=== PATIENT | male | born 1945 | race Caucasian/White ===

== ENCOUNTER 2017-06-23 05:34 | Observation (INO) | payer MEDICARE, OTHER ==
[2017-06-21 16:16] LABS: A/G RATIO 1.2 (0.7-1.9); ALBUMIN 4.2 G/DL (3.5-5.0); BUN (BLOOD UREA NITROGEN) 13 MG/DL (6-23); CALCIUM, SERUM 9.1 MG/DL (8.5-10.4); CHLORIDE, SERUM 96 MMOL/L (96-112); CHOL/HDL RATIO(NOT ORDER) 2.4 (0-5); CHOLESTEROL 173 MG/DL (< 200); CO2 (CARBON DIOXIDE) 27 MMOL/L (24-34); GFR AFRICAN AMERICAN 101 ML/MIN (>=60); GFR NON AFRICAN AMERICAN 87 ML/MIN (>=60); GLOBULIN 3.6 G/DL (2.5-4.1); GLUCOSE, SERUM 115 MG/DL (60-99); HDL CHOLESTEROL 73 MG/DL (> 39); NON-HDL CHOLESTEROL 100 MG/DL (< 160); POTASSIUM, SERUM 4.4 MMOL/L (3.5-5.3); SGOT(AST) 18 U/L (5-40); SGPT(ALT) 22 U/L (5-65); TOTAL BILIRUBIN 0.9 MG/DL (0-1.2); TOTAL PROTEIN 7.8 G/DL (6.0-8.5)
[2017-06-21 16:21] LABS: ALKALINE PHOSPHATASE 79 U/L (45-117); LDL CHOLESTEROL 73 MG/DL (< 130); SODIUM, SERUM 133 MMOL/L (135-148); TRIGLYCERIDE 135 MG/DL (< 150)
[2017-06-21 17:29] LABS: CREATININE (RANDOM URINE) 27.7 MG/DL
[~2017-06-23] VITALS: Ht 177.8 cm; Wt 87.7 kg
--- NOTE | ~2017-06-23 | TEE ---
Transesophageal Echocardiogram [facility] [address] [place]. [address] NAME: JANETTE FUCHS : 49 STATUS : DIS Lina PAT#: [id number] AGE: 71 ADM/REG DATE : 06/23/17 MR#: [id number] REPORT SERV DATE: 06/23/17 DICTATED BY: DANG ZAMAN DATE: 06/23/17 REPORT STATUS : Draft TRANSCRIBED BY: KAELYN DATE: 06/23/17 This is a 71-year-old gentleman of Dr. Ga with a history of coronary artery disease and remote history of CABG and paroxysmal atrial fibrillation. He has been on chronic anticoagulation with Coumadin. The INR was found to be 1.9 earlier this morning and received Lovenox subcutaneously. The dose of the Coumadin has been adjusted. I have been asked to do CHANTAL-guided cardioversion for atrial fibrillation with rapid ventricular response. Risks and benefits of the procedure were explained to the patient. He agreed to proceed. After he was sedated with propofol per Anesthesia, CHANTAL probe was introduced without any difficulties. No complications. FINDINGS: 1. No evidence of left atrial or left atrial appendage thrombus. Normal left atrial appendage outflow velocity around 40 cm/sec. 2. Normal LV size and systolic function, EF of 55%. No regional wall motion abnormalities. 3. Normal RV size and systolic function. 4. Aortic valve is sclerotic, tricuspid opens adequately without significant regurgitation. 5. Mitral opens adequately without significant regurgitation. 6. Tricuspid valve opens adequately. There is a trace tricuspid valve regurgitation. There is grossly normal pulmonic valve. 7. 200 joules of synchronized cardioversion restored normal sinus rhythm. The patient recovered well. CONCLUSION: SUCCESSFUL CHANTAL-GUIDED CARDIOVERSION FROM ATRIAL FIBRILLATION TO NORMAL SINUS RHYTHM. OJL/KAELYN Dang Zaman M.D. / [id number] CC: Kiera Rodriguez, MSN, KILN CHARGER-BC Boogie Kessler M.D.
--- NOTE | ~2017-06-23 | HP ---
History And Physical [facility] [address] [place]. [address] NAME: JANETTE FUCHS : 49 STATUS : ADM Lina PAT#: [id number] AGE: 71 ADM/REG DATE : 06/23/17 MR#: [id number] REPORT SERV DATE: 06/23/17 DICTATED BY: PAULINE FONSECA DATE: 06/23/17 REPORT STATUS : Draft TRANSCRIBED BY: KAELYN DATE: 06/23/17 DATE OF ADMISSION: 06/23/2017 PAPER SLITTER: Edinson Ga M.D. CHIEF COMPLAINT: Palpitations and A-flutter. HISTORY OF PRESENT ILLNESS: This is a pleasant 71-year-old white male with a known history of paroxysmal atrial fibrillation, on Coumadin anticoagulation. He also has a history of hypertension, hyperlipidemia, diabetes mellitus type 2, and coronary artery disease status post remote CABG. He reports that last night at approximately 9 p.m. he noted palpitations and he felt that he was out of rhythm and therefore, he checked his heart rate and it was approximately in the one-teens. He reports he fell asleep and when he awakened this morning, he noted he was still out of rhythm with palpitations and therefore, he decided to present to the emergency department. In the emergency room, this morning they noted that he was in atypical A-flutter with a heart rate in the one-teens. He currently takes carvedilol 6.25 twice a day in addition to Coumadin. He reports he has not missed any of his medications. Note he had no chest pain. He reports that recently his hydrochlorothiazide was increased and that had resolved his edema and that he has been doing quite well. PAST MEDICAL HISTORY: 1. Paroxysmal atrial fibrillation, on . 2. Hypertension. 3. Hyperlipidemia. 4. Coronary artery disease, status post CABG. 5. Diabetes mellitus type 2. 6. Ejection fraction 70% per cath arteriogram on 05/12/2007. Catheterization arteriogram showed a patent HINOJOSA to LAD, patent SVG to PDA, and patent SVG to R1. SOCIAL HISTORY: . Denies tobacco. Drinks approximately two beers or alcoholic drinks several times per week. No illicit drug use. No formal exercise program. FAMILY HISTORY: Noncontributory. ALLERGIES: 1. PENICILLINS, REACTION FACIAL SWELLING. 2. PNEUMOVAX 23, UNKNOWN. 3. HYDRALAZINE, HEART RACES. 4. CLONIDINE, DECREASE HIS BLOOD PRESSURE. MEDICATIONS: Home medications list was reviewed and is as follows: 1. Amlodipine 10 mg p.o. daily. 2. Aspirin 81 mg p.o. daily. 3. Lipitor 40 mg p.o. at bedtime. 4. Benazepril 40 mg p.o. daily. 5. Coreg 6.25 mg p.o. b.i.d. History And Physical [address] [address] NAME: JANETTE FUCHS : 49 STATUS : ADM Lina PAT#: [id number] AGE: 71 ADM/REG DATE : 06/23/17 MR#: [id number] REPORT SERV DATE: 06/23/17 DICTATED BY: PAULINE FONSECA DATE: 06/23/17 REPORT STATUS : Draft TRANSCRIBED BY: KAELYN DATE: 06/23/17 6. Amaryl 4 mg p.o. b.i.d. 7. Hydrochlorothiazide 25 mg p.o. daily. 8. Magnesium 250 mg daily or every other day. 9. Metformin 500 mg p.o. twice per day. 10.Protonix 40 mg p.o. daily. 11.Potassium gluconate 99 mg p.o. daily. 12.Nasacort spray, one spray nasally at bedtime. 13.Jantoven 5 mg p.o. at bedtime. PHYSICAL EXAMINATION: VITAL SIGNS: Temperature 98.1, pulse 111, respiratory rate 20, blood pressure 148/97. GENERAL: Well developed, well nourished. In no apparent distress. HEENT: Head normocephalic. No xanthelasma. Sclera clear, anicteric. Moist mucous membranes without pallor. No lymphadenopathy. No deficits noted. NECK: Trachea midline. Supple. No thyromegaly, JVD, or bruits. RESPIRATORY: Unlabored respirations. Breath sounds clear bilaterally to posterior auscultation. No wheezes, rhonchi or crackles. CARDIOVASCULAR: Irregularly irregular. No murmur, rub, or gallop appreciated. No chest wall tenderness to palpation. ABDOMEN: Soft, nontender, and nondistended. Active bowel sounds auscultated x4 quadrants. No organomegaly and no masses. No aortic bruit. EXTREMITIES: DP/PT and radial pulses 2+ bilaterally. No clubbing, cyanosis, or edema. SKIN: Warm, dry, intact. No rash. Normal turgor. MUSCULOSKELETAL: Moves all extremities in bed without difficulty. NEURO/PSYCH: Alert and oriented x3 with no acute distress. Affect appropriate to current situation. LABORATORY DATA: BMP: Sodium 136, potassium 4, creatinine 1.05, glucose 147, calcium 9.2, magnesium low at 1.4. CBC: White blood cell count 7, hemoglobin 13.4, hematocrit 38.6, platelets 224. INR was mildly subtherapeutic at 1.9. Troponin less than 0.02. ASSESSMENT AND PLAN: 1. Atypical atrial flutter. He was on a Cardizem drip. A dosage of Lovenox was given as his INR was subtherapeutic this morning at 1.9. CHANTAL and cardioversion were ordered for 1:30 today. This was performed by Dr. Jones. He had a normal LVEF of approximately 55%. No evidence of left atrium or left atrial appendage thrombus. He had successful DC cardioversion and was converted to sinus rhythm. He will be discharged to home with a 48-hour Holter monitor per Dr. Gallagher. He will be increased on Jantoven from 5 mg p.o. every evening to 6 mg p.o. every evening. He will have an INR check on Tuesday at the [facility]. He will follow up with his graphic editor at [facility], Dr. Ga in one month. 2. History of paroxysmal atrial fibrillation. This is noted. His CHADS2-VASc equals 4. We will continue Jantoven and increase the dosage for a target INR of 2 to 3. 3. Coronary artery disease, status post remote CABG. His ejection fraction was normal. I will continue his current medications which include beta-dinesh, aspirin, and statin. 4. Diabetes mellitus type 2. We will continue home medications on discharge. 5. Hypertension. This is well controlled on current medications. History And Physical [address] [address] NAME: JANETTE FUCHS : 49 STATUS : ADM Lina PAT#: [id number] AGE: 71 ADM/REG DATE : 06/23/17 MR#: [id number] REPORT SERV DATE: 06/23/17 DICTATED BY: PAULINE FONSECA DATE: 06/23/17 REPORT STATUS : Draft TRANSCRIBED BY: KAELYN DATE: 06/23/17 6. Hyperlipidemia. Again continue home medications. 7. Hypomagnesemia. This would be repleted. I will increase his magnesium supplementation on discharge from 250 mg daily to twice per day. I will repeat a BMP and magnesium in [facility] Per Dr. Gallagher, we will order an outpatient pulse oximetry overnight screening to evaluate initially for possible obstructive sleep apnea. The patient was also seen by Dr. aGllagher supervising physician for atrial fibrillation observation unit. KERRI/KAELYN Pauline Fonseca NP / [id number] CC: Kiera Rodriguez, MSN, PHYSICIAN PRACTICE ADMINISTRATOR-BC Boogie Kessler M.D. Edinson Ga M.D. Tez Gallagher M.D. Jana Jones M.D.
[~2017-06-23 05:34] MED LIST: AMARYL4 PO; ASAB PO; COREG12 PO; COREG6 PO; ELIQUIS 5 MG TAB5 MG PO; GLUCPH PO; HALF81 PO; HYDROCHLOROT12.5 MG PO; HYDROCHLOROT25 MG PO; JANTOVEN5 MG PO; LIPITOR40 PO; LOTE40 PO; MAG OXIDE250 MG PO; MICROZIDE PO; NASACORTAQ NAS; NORV10 PO; NORV5 PO; PCET PO; PROTONIX PO; V2 PO
[2017-06-23 06:35] LABS: BASOPHILS 0.4 %; BASOPHILS ABSOLUTE 0.03 10/3/uL (0.0-0.16); EOSINOPHILS 3.7 %; EOSINOPHILS ABSOLUTE 0.26 10/3/uL (0.0-0.53); HEMATOCRIT 38.6 % (40.0-51.0); HEMOGLOBIN 13.4 g/dL (13.6-17.8); IMMATURE GRANULOCYTES 0.1 %; IMMATURE GRANULOCYTES ABSOLUTE 0.01 10/3/uL (0.0-0.11); LYMPHOCYTES 26.3 %; LYMPHOCYTES ABSOLUTE 1.83 10/3/uL (0.67-4.30); MEAN CORPUS HGB CONC 34.7 g/dL (32.0-36.0); MEAN CORPUSCULAR HEMOGLOB 29.5 pg (26.0-34.0); MONOCYTES 7.3 %; MONOCYTES ABSOLUTE 0.51 10/3/uL (0.21-1.20); NEUTROPHILS 62.2 %; NEUTROPHILS ABSOLUTE 4.33 10/3/uL (2.02-8.40); PLATELET COUNT 224 10/3/uL (150-400); RBC DISTRIBUTION WIDTH 14.5 % (12.0-16.0); RED CELL COUNT 4.54 10/6/uL (4.7-6.1)
[2017-06-23 06:36] LABS: MANUAL DIFF NO %
[2017-06-23 06:43] LABS: INTERNATIONAL NORMAL RATI 1.9 UNITS (-); PARTIAL THROMBO TIME 34.1 SEC (22.5-37.2)
[2017-06-23 06:44] LABS: PROTIME (NOT ORD) 21.4 SEC (12.0-14.5)
[2017-06-23 06:52] LABS: CALCIUM, SERUM 9.2 MG/DL (8.5-10.4); CHEST PAIN PROFILE TAT 0 Hrs 21 Mins; CHLORIDE, SERUM 104 MMOL/L (96-112); CO2 (CARBON DIOXIDE) 25 MMOL/L (24-34); CREATININE 1.05 MG/DL (0.70-1.30); GFR AFRICAN AMERICAN 84 ML/MIN (>=60); GFR NON AFRICAN AMERICAN 72 ML/MIN (>=60); SODIUM, SERUM 136 MMOL/L (135-148); TROPONIN I <0.02 NG/ML (<0.05)
[2017-06-23 06:53] LABS: BUN (BLOOD UREA NITROGEN) 21 MG/DL (6-23); GLUCOSE, SERUM 147 MG/DL (60-99)
[2017-06-23] MEDS ORDERED: POTASSIUM GLUCO99 MG PO (07:40)
[2017-06-23 10:53] LABS: ALBUMIN 3.8 G/DL (3.5-5.0); ALKALINE PHOSPHATASE 73 U/L (45-117); DIRECT BILIRUBIN 0.1 MG/DL (0.0-0.4); FREE T4 1.19 NG/DL (0.76-1.46); INDIRECT BILIRUBIN(NOT ORDER) 0.4 MG/DL (0.1-0.9); SGOT(AST) 14 U/L (5-40); SGPT(ALT) 20 U/L (5-65); TOTAL BILIRUBIN 0.5 MG/DL (0-1.2); TOTAL PROTEIN 7.8 G/DL (6.0-8.5)
== END 2017-06-23 16:55 | disposition home or self-care (01) ==
LOC: ER 05:34 → CDU1 07:24
PROVIDERS: Family Medicine; Nurse Practitioner
DX: I48.4 Atypical atrial flutter (principal); I36.1 Nonrheumatic tricuspid (valve) insufficiency; I35.8 Other nonrheumatic aortic valve disorders; I48.0 Paroxysmal atrial fibrillation; I25.10 Atherosclerotic heart disease of native coronary artery without angina pectoris; I10 Essential (primary) hypertension; E11.9 Type 2 diabetes mellitus without complications; E83.42 Hypomagnesemia; E78.2 Mixed hyperlipidemia; Z88.0 Allergy status to penicillin; Z88.7 Allergy status to serum and vaccine; Z88.8 Allergy status to other drugs, medicaments and biological substances; Z79.82 Long term (current) use of aspirin; Z79.01 Long term (current) use of anticoagulants; Z79.84 Long term (current) use of oral hypoglycemic drugs; Z95.1 Presence of aortocoronary bypass graft; Z98.1 Arthrodesis status; Z96.1 Presence of intraocular lens; Z98.41 Cataract extraction status, right eye; Z98.42 Cataract extraction status, left eye; Z98.890 Other specified postprocedural states
CPT/HCPCS: 71010; 80048; 80053; 80061; 80076; 82043; 82248; 82962; 83036; 83735; 83880; 84439; 84443; 84484; 85025; 85610; 85730; 92960; 93005; 93225; 93312; 93320; 93325; 96365; 96366; 96372; 96374; 96375; 99285; A9270-GY; G0378; J3475